=== PATIENT | female | born 1930 | race Caucasian/White ===

== ENCOUNTER 2019-08-05 16:08 | Inpatient (IN) | payer OTHER ==
[~2019-08-05] VITALS: Ht 152.4 cm; Wt 52.8 kg
[2019-08-05 16:10] VITALS: BP 129/38
[2019-08-05 16:59] LABS: MCH 15.8 pg (26.0-34.0); MCHC 26.8 g/dL (28.0-37.0); MCV 59.1 fL (80.0-100.0); PLATELET COUNT 375 thou/uL (150-400); RBC 2.57 mil/uL (4.20-5.00); RDW 20.7 % (10.5-14.5); WBC 8.9 thou/uL (4.0-11.0)
[2019-08-05 17:00] LABS: HEMATOCRIT 15.2 % (37.0-47.0); HEMOGLOBIN 4.1 gm/dL (12.0-15.0)
[2019-08-05] MEDS ORDERED: ZOFRAN4 MG PO (17:02)
[2019-08-05 17:03] LABS: CALCIUM 9.7 mg/dL (8.5-10.1); CREATININE 0.8 mg/dL (0.6-1.0); POTASSIUM 3.8 mmol/L (3.5-5.1)
[2019-08-05] MEDS ORDERED: COLACE100 MG PO (17:03)
[2019-08-05] MEDS ORDERED: MUCINEX600 MG PO (17:03)
[2019-08-05] MEDS ORDERED: CEPACOL SORE T1 EAC7 PO (17:04)
[2019-08-05] MEDS ORDERED: ASA81BEC PO (17:04)
[2019-08-05] MEDS ORDERED: VITAMIN B COMP1 EACH PO (17:05)
[2019-08-05] MEDS ORDERED: VITAMIN D32000 UNI2 PO (17:05)
[2019-08-05] MEDS ORDERED: SUPER THERAVIT1 EACH PO (17:05)
[2019-08-05] MEDS ORDERED: LASIX 40 MG TAB40 MG PO (17:06)
[2019-08-05] MEDS ORDERED: FAMOTIDINE 20 M20 MG PO (17:06)
[2019-08-05] MEDS ORDERED: KLOR-CON M2020 MEQ PO (17:07)
[2019-08-05 17:08] LABS: ALBUMIN 3.6 g/dL (3.4-5.0); TOTAL BILIRUBIN 0.4 mg/dL (<0.1-1.0)
[2019-08-05] MEDS ORDERED: MSM1000 MG PO (17:08)
[2019-08-05 17:09] LABS: APTT 19.5 Seconds (24.5-32.8); INR 1.1; PROTIME 11.4 Seconds (9.3-11.4)
[2019-08-05 17:36] LABS: ABSOLUTE NEUTROPHILS 7.6 thou/uL (1.4-8.2); ANISOCYTOSIS 2+; HYPOCHROMASIA 3+; MICROCYTES 2+; NUCLEATED RBCS 1 /100WBC; PLATELET ESTIMATE NORMAL; POIKILOCYTOSIS 1+
[2019-08-05 18:51] LABS: ABSOLUTE RETIC COUNT 0.0885 10^6/uL; OBSERVED RETIC COUNT 3.38 % (0.6-2.6)
[2019-08-05 18:53] LABS: % SATURATION 2 % (20-39); IRON 9 ug/dL (50-170); TIBC 452 ug/dL (250-450)
[2019-08-05 19:17] VITALS: BP 101/53; BP 92/50; BP 94/49
[2019-08-05 20:15] VITALS: BP 93/49
[2019-08-05 21:21] VITALS: BP 128/66
[2019-08-05 22:05] VITALS: BP 111/47
[2019-08-05 22:09] VITALS: BP 100/52
[2019-08-06 04:45] VITALS: BP 101/57
[2019-08-06 06:12] LABS: HEMATOCRIT 16.1 % (37.0-47.0); HEMOGLOBIN 4.7 gm/dL (12.0-15.0)
[2019-08-06 07:23] VITALS: BP 102/68
[2019-08-06 09:17] VITALS: BP 111/52; BP 117/61
[2019-08-06 11:16] VITALS: BP 117/61; BP 123/68; BP 125/67
[2019-08-06 15:08] VITALS: BP 118/61
[2019-08-06 20:43] VITALS: BP 109/50
[2019-08-07 04:27] VITALS: BP 138/75
[2019-08-07 05:11] LABS: HEMATOCRIT 26.7 % (37.0-47.0); MCH 21.6 pg (26.0-34.0); MCHC 30.6 g/dL (28.0-37.0); RBC 3.78 mil/uL (4.20-5.00); RDW 29.4 % (10.5-14.5); WBC 10.5 thou/uL (4.0-11.0)
[2019-08-07 05:29] LABS: HEMOGLOBIN 8.2 gm/dL (12.0-15.0); MCV 70.7 fL (80.0-100.0)
[2019-08-07 05:40] LABS: CREATININE 0.5 mg/dL (0.6-1.0); POTASSIUM 3.2 mmol/L (3.5-5.1)
[2019-08-07 07:55] VITALS: BP 106/58
--- NOTE | 2019-08-07 08:10 | H ---
[facility] [place] [address] HISTORY AND PHYSICAL Name: KARENAENDY Ava Room #: 355-P ADM IN ..#: [id number] Admission: 08/05/19 Attend Phys: Sebastien Dean MD Discharge: Date of : [birth year] Report #: [id number] THIS REPORT FOR: //name// CC: Sebastien Dean DATE OF SERVICE: 08/05/2019 HISTORY OF PRESENT ILLNESS: The patient is an 89-year-old female who was brought to the Emergency Room with low hemoglobin level. The patient has been complaining of having some nausea in addition to epigastric abdominal pain for the last 2 weeks. The patient indicated that she started to feel somewhat more dizzy in addition to having some shortness of breath over the last couple of days. I received a call from the nurse at [facility] to indicate that she is having some abdominal pain. For this reason, we went ahead and did blood work in addition to chest x-ray that showed the presence of hemoglobin of 4.6 and on arrival to the hospital, hemoglobin was 4.1. The patient was admitted with anemia. The patient indicated that she did not have any vomiting even though she was nauseated. The patient pays attention to the color of her stool and her stool is not showing any blood or any black colored and actually her stool was negative for occult blood when she was in the Emergency Room. The patient denies any chest pain or palpitation. The patient denies any vaginal bleed. The patient denies any hematuria. PAST MEDICAL HISTORY: Significant for osteoporosis in addition to multiple compression fractures in the back. The patient is on Lasix, but she is not aware of any cardiac condition. The patient had the diagnosis of anemia and requiring blood transfusion 2 years ago and at that time, she had an endoscopy and colonoscopy done and both of them came back negative. MEDICATIONS: The patient's medications were reviewed and reconciled. ALLERGIES: No known drug allergies. SOCIAL HISTORY: The [facility] for the last 2 years. No recent history of smoking, alcohol use or drug use. FAMILY HISTORY: Noncontributory. REVIEW OF SYSTEMS: Negative besides what was mentioned above. PHYSICAL EXAMINATION: VITAL SIGNS: Showed a temperature of 37.0, pulse 120 that dropped to 84, respirations 20, blood pressure 129/38. HEAD AND NECK: Unremarkable. Neck was supple. LUNGS: Clear to auscultation. CARDIAC: S1, S2. [address] [address] HISTORY AND PHYSICAL Name: ENDY THURSTON Room #: 355-P ADM IN [facility]#: [id number] Admission: 08/05/19 Attend Phys: Sebastien Dean MD Discharge: Date of : [birth year]/19[birth year] Report #: [id number] ABDOMEN: Benign. Bowel sounds were positive. No tenderness, no rigidity, no rebound tenderness. EXTREMITIES: +1 edema bilaterally. LABORATORY DATA: The patient's labs on arrival to the hospital; sodium was 140, potassium 3.8, chloride 103, bicarbonate 24, anion gap 13, BUN 23, creatinine 0.8, glucose 122. AST 12, ALT 19. The rest of liver function tests were normal. The patient's INR is 1.1 and PTT is 19.5. CBC with diff showed white count of 8.9, hemoglobin 4.1, hematocrit 15.2, platelet count 375. Neutrophils were 83%. Stool for occult blood came back negative. Reticulocyte count was 0.0885. Iron was 9, total iron binding capacity is 452, iron saturation is 2%, ferritin was 4. Repeated hemoglobin after one unit was 4.7 and hematocrit was 16.1. ASSESSMENT AND PLAN: 1. Iron deficiency anemia. 2. Possible gastrointestinal bleed. 3. Osteoporosis. 4. Chronic dizziness. The patient was admitted to the hospital with the above-mentioned diagnoses. The patient received 1 unit of blood and we asked for 2 more units to be given. The patient to have her hemoglobin repeated after the blood transfusion. I will start the patient on iron infusion because of her low iron levels. I will have Gastroenterology to consult on the patient. I will start the patient on Protonix for the possibility of gastric cause of her anemia. The patient to start physical therapy and occupational therapy. <ELECTRONICALLY SIGNED> By: Sebastien Dean MD 08/07/19 0810 [id number] [id number] Sebastien Dean MD /nt
[2019-08-07 11:11] VITALS: BP 107/77
[2019-08-07 16:44] VITALS: BP 125/61
[2019-08-07 20:34] VITALS: BP 119/51
[2019-08-08 04:33] VITALS: BP 115/71
[2019-08-08 06:10] LABS: HEMATOCRIT 28.4 % (37.0-47.0); HEMOGLOBIN 8.6 gm/dL (12.0-15.0); MCH 21.6 pg (26.0-34.0); MCHC 30.4 g/dL (28.0-37.0); RBC 3.99 mil/uL (4.20-5.00); RDW 31.1 % (10.5-14.5); WBC 8.3 thou/uL (4.0-11.0)
[2019-08-08 06:27] LABS: CALCIUM 8.1 mg/dL (8.5-10.1); CREATININE 0.5 mg/dL (0.6-1.0); POTASSIUM 3.3 mmol/L (3.5-5.1)
[2019-08-08 07:33] VITALS: BP 126/76
[2019-08-08 12:40] VITALS: BP 139/74
[2019-08-08 15:14] VITALS: BP 136/75
[2019-08-08 20:01] VITALS: BP 131/72
[2019-08-09 05:12] LABS: HEMATOCRIT 30.2 % (37.0-47.0); HEMOGLOBIN 9.3 gm/dL (12.0-15.0); MCH 22.4 pg (26.0-34.0); MCHC 30.9 g/dL (28.0-37.0); MCV 72.6 fL (80.0-100.0); RBC 4.16 mil/uL (4.20-5.00); RDW 31.8 % (10.5-14.5); WBC 10.4 thou/uL (4.0-11.0)
[2019-08-09 05:27] LABS: CALCIUM 7.8 mg/dL (8.5-10.1); CREATININE 0.4 mg/dL (0.6-1.0)
[2019-08-09 05:28] LABS: POTASSIUM 4.1 mmol/L (3.5-5.1)
[2019-08-09 05:48] VITALS: BP 126/68
[2019-08-09 07:40] VITALS: BP 122/65
[2019-08-09] MEDS ORDERED: FERREX 150 PLU1 EAC1 PO (08:02)
[2019-08-09] MEDS ORDERED: PROTONIX40 M1 PO (08:03)
--- NOTE | 2019-08-09 11:04 | P ---
[facility] [place] [address] PROCEDURE REPORT Name: ENDY THURSTON Room #: 355-P ADM IN ..#: [id number] Admission: 08/05/19 Attend Phys: Sebastien Dean MD Discharge: Date of : 03/19/[birth year] Report #: [id number] THIS REPORT FOR: //name// CC: Sebastien Dean MD INPATIENT ENDOSCOPY REPORT BRIEF HISTORY: The patient is an 89-year-old woman with marked iron deficiency anemia. She apparently was evaluated for anemia about 2 years ago at [facility]. Those records are not available at this time. We were told that the endoscopic evaluation was negative. She has no GI complaints. She has no complaints of melena or bloody stools. She has no abdominal pain. She does have some difficulty with swallowing. She does have history of a CVA. She also uses a baby aspirin daily. PREOPERATIVE DIAGNOSIS: Marked iron deficiency anemia. POSTOPERATIVE DIAGNOSES: 1. Moderate to severe erosive gastritis. 2. A 6 cm sliding type hiatus hernia. 3. Moderate Schatzki ring. MEDICATIONS: Deep sedation with propofol per anesthesia. SPECIMENS: 1. Biopsies of small bowel, rule out celiac disease. 2. Biopsies of gastritis. ESTIMATED BLOOD LOSS: 3 mL. PROCEDURES: EGD with biopsy and Savary dilator over a guidewire. FINDINGS: Prior to propofol sedation, the procedure of upper endoscopy was discussed with the patient as well potential risks and its complications. She indicates she understands and desires to proceed. DESCRIPTION OF PROCEDURE: With the patient in left lateral decubitus position, the Olympus video endoscope was inserted in the cervical esophagus under direct vision without difficulty. Examination throughout its entire length revealed normal esophageal mucosa. No ulcers or erosions were seen. There is no evidence of bleeding in the esophagus. The distal esophagus was tortuous secondary to hiatus hernia. At the squamocolumnar junction, there was noted to be a moderate Schatzki ring. The squamocolumnar junction was intact without evidence of ulcers, erosions, Chance's esophagus, mass lesions or evidence of bleeding. The scope was advanced into a moderately large sliding type hiatus hernia. The mucosa on the hernia was intact. No ulcers were seen. No erosions [address] [address] PROCEDURE REPORT Name: KARENAENDY J Room #: 355-P [facility] IN [facility]#: [id number] Admission: 08/05/19 Attend Phys: Sebastien Dean MD Discharge: Date of : [birth year]/19/[birth year] Report #: [id number] were seen. There was no evidence of bleeding. The hernia measured about 6 cm in greatest dimension. The scope was advanced in the distal stomach, which was examined on end view as well as retroflexed views. It was noted to have gastritis and there were multiple erosions in the antrum. In addition, in the antrum and into the body of the stomach were very long erosions. Stigmata of bleeding was not identified. The erosions did not extend all the way to the hiatus hernia, but close to the hiatus hernia. Upon retroflexion, no mass lesions were seen. The hiatus hernia was seen. The pylorus, duodenal bulb and postbulbar duodenal sweep were inspected and noted to be unremarkable. Small bowel biopsies obtained for celiac disease. Biopsies obtained of the gastritis. Prior to withdrawal of the scope, a guidewire was passed through the biopsy channel into the antrum of the stomach. The scope was withdrawn over the guidewire and she was dilated with passage of 48-Spanish Savary dilator. DISPOSITION: The patient with marked microcytic anemia. She has had previous evaluation and reported that was negative. She does have multiple erosions in the antrum and body of the stomach. It is possible these could contribute to chronic blood loss. At this point in time, I would recommend she use PPIs on a daily basis. She should exercise caution with use of nonsteroidals, although in view of her history of CVA, she likely will need to continue her aspirin daily. Also consider further evaluation such as an M2 capsule study. I did suggest she be on iron chronically. Large hiatus hernia can be associated with anemia. Also, await records from [facility] with regards to colonoscopy done 2 years ago. <ELECTRONICALLY SIGNED> By: Alex Lewis MD 08/09/19 1104 1143 1356 Alex Lewis MD /nt
--- NOTE | 2019-08-11 17:06 | PATH ---
[facility] [address] [place] [address] [place] [address] PATHOLOGY RPT PROCEDURE Name: LIMA ONOFRE Ava Room #: 355-P DIS IN M.R.#: [id number] Admission: 08/05/19 Date of : [birth year] Discharge: 08/09/19 Report #: [id number] Path Case #: [id number] [facility] Accession Number: [id number] . 01 Material submitted: . PART A: small bowel - BIOPSY OF SMALL BOWEL REGARDING ANEMIA TO R/O CELIAC DISEASE PART B: stomach - BIOPSY OF GASTRITIS TO R/O H. PYLORI . 01 Clinical history: . Pre-OP DX: Anemia Post-OP DX: Erosive gastritis, hiatal hernia, Schatzki's ring . 02 Diagnosis: A. Small bowel mucosa, small bowel to rule out celiac disease, endoscopic biopsy: - No significant diagnostic abnormalities present. - Negative for villous blunting or increase in intraepithelial lymphocytes. . B. Gastric mucosa, gastritis, endoscopic biopsy: - Moderate reactive gastropathy. - Negative for intestinal metaplasia or atrophy. - Negative for Helicobacter pylori (properly-controlled immunohistochemical stain performed). . (IUV:mml; 08/11/2019) QL 08/11/2019 1235 Local . 02 Electronically signed: . Marry Chang MD, Pathologist NPI- [id number] . 01 Gross description: . A. Received in formalin labeled "Lima Onofre BX of small bowel," and additionally labeled on the requisition as "regarding anemia to rule out celiac disease," are multiple segments of pedro soft tissue measuring 0.9 x 0.5 x 0.1 cm in aggregate dimensions. The specimen is filtered and entirely submitted in cassette A1. . B. Received in formalin labeled "Lima Onofre BX of gastritis," and additionally labeled on the requisition as "to rule out H. pylori," are 5 segments of pedro soft tissue measuring 1.1 x 0.8 x 0.2 cm in aggregate dimensions and ranging from 0.3 to 0.7 cm in maximum dimension. The specimen is submitted entirely in cassette B1. (TSD; 08/08/2019) TOB/TOB 08/08/[address] [address] PATHOLOGY RPT PROCEDURE Name: LIMA ONOFRE Room #: 355-P DIS IN M.R.#: [id number] Admission: 08/05/19 Date of : [birth year]/19/[birth year] Discharge: 08/09/19 Report #: [id number] Path Case #: [id number] . 02 Pathologist provided ICD-10: K31.9 . 02 CPT . 523966, [id number], [id number] Specimen Comment: A courtesy copy of this report has been sent to [phone], [phone] Specimen Comment: [id number] Specimen Comment: Report sent to / DR DE LA FUENTE Performed at: [address], [place] [id number] MD Eliecer Muniz MD Phone: [phone] Performed at: [address] [id number] MD Marry Chang MD Phone: [phone]
== END 2019-08-09 14:21 | DRG 812 ==
LOC: ER 16:08 → EROBS 18:33 → 3W 18:33 → ER 21:21 → 3W 21:21
PROVIDERS: Emergency Medicine; Nurse Practitioner Adult Health; Physician Assistant; ADMIT Internal Medicine
PROC: 0D758ZZ Dilation of Esophagus, Via Natural or Artificial Opening Endoscopic (ICD-10-PCS; principal; 2019-08-05)
PROC: 30233N1 Transfusion of Nonautologous Red Blood Cells into Peripheral Vein, Percutaneous Approach (ICD-10-PCS; principal; 2019-08-05)
PROC: 0DB68ZX Excision of Stomach, Via Natural or Artificial Opening Endoscopic, Diagnostic (ICD-10-PCS; principal; 2019-08-05)
PROC: 0DBK8ZX Excision of Ascending Colon, Via Natural or Artificial Opening Endoscopic, Diagnostic (ICD-10-PCS; principal; 2019-08-05)
DX: D50.9 Iron deficiency anemia, unspecified (principal); K29.00 Acute gastritis without bleeding; E87.6 Hypokalemia; M81.0 Age-related osteoporosis without current pathological fracture; E78.5 Hyperlipidemia, unspecified; E55.9 Vitamin D deficiency, unspecified; R13.10 Dysphagia, unspecified; R42 Dizziness and giddiness; K21.9 Gastro-esophageal reflux disease without esophagitis; R53.81 Other malaise; K44.9 Diaphragmatic hernia without obstruction or gangrene; K22.2 Esophageal obstruction; K63.5 Polyp of colon; Z79.82 Long term (current) use of aspirin; Z79.899 Other long term (current) drug therapy; Z86.73 Personal history of transient ischemic attack (TIA), and cerebral infarction without residual deficits
CPT/HCPCS: 10879; 62110; 62900; 70005